=== PATIENT | male | born 1980 | race Caucasian/White ===

== ENCOUNTER 2018-01-19 00:47 | Emergency (ER) | payer OTHER ==
--- NOTE | 2018-01-19 01:06 | ED ---
Substance Abuse/Use - HPI Summary HPI Summary: Pt is a 37 y/o M who consumed a THC gummy at 2300 today and was picked up at [facility]. He reports having a dry mouth and general weakness. Per triage, he states he is experiencing chest discomfort and denies N/V, but in the room states he is experiencing back pain and no chest pain. - History Of Current Complaint Chief Complaint: EDGeneral Stated Complaint: DRY MOUTH Time Seen by Provider: 01/19/18 00:59 Hx Obtained From: Patient Onset/Duration of Drug/ETOH Abuse: Hours - 2 hours ago Ingestion History: Type/Name Of Drug - THC gummy Overdose Characteristics: Oral Character: Other - general weakness Associated Signs And Symptoms: Other: - NEGATIVE: nausea, vomiting POSITIVE: dry mouth, general weakness, back pain He notes chest pain on triage but denies chest pain in room - Allergies/Home Medications Allergies/Adverse Reactions: Allergies Allergy/AdvReac Type Severity Reaction Status Date / Time No Known Allergies Allergy Verified 03/07/14 18:05 PMH/Surg Hx/FS Hx/Imm Hx Sensory History: Denies: Hx Legally Blind EENT History: Denies: Hx Deafness - Surgical History Surgery Procedure, Year, and Place: Left Knee ACL, Debridement, and Infections Surgeries Infectious Disease History: No Infectious Disease History: Denies: Traveled Outside the [place] in Last 30 Days - Family History Known Family History: Negative: Blood Disorder - Social History Alcohol Use: Rare Substance Use Type: Reports: None Smoking Status (MU): Never Smoked Tobacco Review of Systems Positive: Other - POSITIVE: general weakness Positive: Other - "dry mouth" Negative: Chest Pain - denies chest pain in the room Negative: Vomiting, Nausea Positive: Other - back pain All Other Systems Reviewed And Are Negative: Yes Physical Exam - Summary Physical Exam Summary: Appearance: Well-appearing, Well-nourished, lying in bed comfortably Skin: Warm, dry, no obvious rash Eyes: sclera anicteric, no conjunctival pallor ENT: mucous membranes moist, pharynx appears normal Neck: Supple, nontender Respiratory: Clear to auscultation, no signs of respiratory distress Cardiovascular: Normal S1, S2. No murmurs. Normal distal pulses in tibial and radial bilaterally. Abdomen: Soft, nontender, normal active bowel sounds present Musculoskeletal: Normal, Strength/ROM Intact Neurological: A&Ox3, awake and alert, mentation is normal, speech is fluent and appropriate Psychiatric: affect is normal, does not appear anxious or depressed Triage Information Reviewed: Yes Vital Signs On Initial Exam: Initial Vitals Temp Pulse Resp BP Pulse Ox 97.6 F 107 16 130/105 98 01/19/18 00:48 01/19/18 00:48 01/19/18 00:48 01/19/18 00:48 01/19/18 00:48 Vital Signs Reviewed: Yes Diagnostics - Vital Signs Vital Signs Temp Pulse Resp BP Pulse Ox 01/19/18 00:48 97.6 F 107 16 130/105 98 - Laboratory Lab Statement: Any lab studies that have been ordered have been reviewed, and results considered in the medical decision making process. Course/Dx - Diagnoses Provider Diagnoses: Cannabis intoxication Discharge - Sign-Out/Discharge Documenting (check all that apply): Patient Departure - Discharge Plan Condition: Good Disposition: HOME Patient Education Materials: Cannabis Abuse (ED) Referrals: Robert Sequeira MD [Primary Care Provider] - Additional Instructions: Cannabis can sometimes cause dysphoria (feeling bad) rather than the intended euphoria. It can also cause other side effects like paranoia and unpleasant somatic symptoms. Fortunately these are short lived and self limited, and virtually never cause any manager long term care effects, nor are they dangerous. You should feel much better in the morning. - Billing Disposition and Condition Condition: GOOD Disposition: Home
[2018-01-19 01:15] VITALS: BP 160/99
== END 2018-01-19 01:14 | disposition home or self-care (01) ==
LOC: ED 00:47
DX: F12.929 Cannabis use, unspecified with intoxication, unspecified (principal)
CPT/HCPCS: 99282